=== PATIENT | female | born 1980 | race Asian ===

== ENCOUNTER 2016-11-14 00:30 | Emergency (ER) | payer OTHER ==
[~2016-11-14] VITALS: Ht 160 cm; Wt 65.3 kg
[~2016-11-14 00:30] MED LIST: ADVIL200 M2 PO; BENTYL20 MG PO; HYDROXYZINE10 MG PO; IMODIUM A-D2 M1 PO; MAALOX ADVANCE355 M1 PO; NEXIUM 40MG40 MG PO; NORCO 325 MG-51 TAB PO; NYQUIL D COLD295 ML PO; PEPCID 20MG TAB20 MG PO
--- NOTE | 2016-11-14 00:53 | ED GI/GU/ABDOMINAL COMPLAINT ---
History of Present Illness General Chief Complaint: Nausea, Vomiting, Diarrhea Stated Complaint: N/V/D Source: patient Exam Limitations: no limitations Vital Signs & Intake/Output Vital Signs & Intake/Output Vital Signs Date Time Temp Pulse Resp B/P Pulse O2 O2 Flow FiO2 Ox Delivery Rate 11/14 0055 96.9 85 18 130/95 98 Room Air Allergies Coded Allergies: shellfish derived (RASH 02/10/16) Reconcile Medications Diphenoxylate HCl/Atropine (Lomotil 2.5-0.025 MG Tablet) 2.5 MG-0.025 MG TABLET 1 TAB PO 4 TIMES/DAY PRN DIARRHEA TWENTY...[id number] Dm/P-Ephed/Acetaminoph/Doxylam (Nyquil D Cold & Flu Liquid) 295 ML LIQUID 30 ML PO Q4H PRN BODY ACHES/FEELS COLD (Reported) Ibuprofen (Advil) 200 MG TABLET 2 TAB PO PRN PAIN (Reported) Omeprazole Magnesium (Prilosec Otc) 20 MG TABLET.DR 1 TAB PO DAILY STOMACH PAIN/BURNING Ondansetron (Zofran Odt) 4 MG TAB.RAPDIS 1 TAB SL TID PRN NAUSEA Triage Nurses Notes Reviewed? yes ? n Is pt currently ? No Quality/Severity: cramping Location: generalized abdomen Radiation: no radiation Activities at Onset: none Prior Abdominal Problems: none No Modifying Factors: none Modifying Factors: Improves With: rest. Associated Symptoms: nausea/vomiting HPI: 35-year-old woman with nausea vomiting diarrhea all day today. She states when she woke up she felt nauseous. She has vomited 2-3 times throughout the day. She notes 2-3 episodes of loose green stool. She has no abdominal pain but, "feels bloated." She has no fever chills chest pain shortness of breath. She is otherwise well and has no other concerns. Past History Travel History Traveled to [place] past 21 day No Medical History Any Pertinent Medical History? see below for history Gastrointestinal: TRANSAMINITIS Other Medical Hx: Alcoholism History of MRSA: No History of VRE: No History of CDIFF: No Tetanus Vaccine: 01/12/14 Surgical History Surgical History: cholecystectomy, laparotomy, tubal Psychosocial History Who do you live with Family Services at Home None What is your primary language Japanese Family History Hx Contributory? No Review of Systems Review of Systems Constitutional: Reports: no symptoms. EENTM: Reports: no symptoms. Respiratory: Reports: no symptoms. Cardiovascular: Reports: no symptoms. GI: Reports: no symptoms. Genitourinary: Reports: no symptoms. Musculoskeletal: Reports: no symptoms. Skin: Reports: no symptoms. Neurological/Psychological: Reports: no symptoms. Hematologic/Endocrine: Reports: no symptoms. Immunologic/Allergic: Reports: no symptoms. All Other Systems: Reviewed and Negative Physical Exam Physical Exam General Appearance: well developed/nourished, mild distress Head: atraumatic, normal appearance Eyes: Bilateral: normal appearance. Ears, Nose, Throat, Mouth: hearing grossly normal Neck: normal inspection, supple, full range of motion, normal alignment Respiratory: normal breath sounds, chest non-tender, no respiratory distress, quiet respiration, lungs clear Cardiovascular: regular rate/rhythm Gastrointestinal: normal bowel sounds, soft, non-tender, no organomegaly Back: normal inspection, normal range of motion Extremities: normal range of motion Neurologic/Psych: no motor/sensory deficits, awake, alert, oriented x 3 Skin: intact, normal color, warm/dry Core Measures ACS in differential dx? No Severe Sepsis Present: No Septic Shock Present: No Progress Differential Diagnosis: viral gastroenteritis versus food poisoning versus other. He has no right lower quadrant tenderness. I doubt appendicitis or surgical process. Plan of Care: Orders Procedure Date/time Status LIPASE 11/14 38 Complete HEPATIC FUNCTION PANEL 11/14 38 Complete HUMAN BETA HCG SCREEN 11/14 38 Complete CBC WITHOUT DIFFERENTIAL 11/14 38 Complete BASIC METABOLIC PANEL 11/14 38 Complete AMYLASE 11/14 38 Complete Laboratory Tests 11/14/16 0112: Anion Gap 16, Estimated GFR > 60, BUN/Creatinine Ratio 8.6, Glucose 98, Calcium 10.1, Total Bilirubin 0.5, Direct Bilirubin 0.4, AST 60 H, ALT 52, Alkaline Phosphatase 61, Total Protein 8.2, Albumin 4.9, Amylase 48, Lipase 234, Total Beta HCG NEGATIVE, CBC w Diff NO MAN DIFF REQ, RBC 5.12, MCV 76.9 L, MCH 26.0 L, RDW 14.7 H, MPV 7.2 L, Gran % 45.4, Lymphocytes % 43.1, Monocytes % 8.8, Eosinophils % 1.9, Basophils % 0.8, Absolute Granulocytes 4.1, Absolute Lymphocytes 3.9 H, Absolute Monocytes 0.8 H, Absolute Eosinophils 0.2, Absolute Basophils 0.1, PUBS MCHC 33.8 Initial ED EKG: none Departure Departure Disposition: HOME OR SELF CARE Condition: Stable Clinical Impression Primary Impression: Gastroenteritis Secondary Impressions: Abdominal pain, Nausea and vomiting Referrals: MUNDO SIERRA (PCP/Family) Departure Forms: Customer Survey General Discharge Information Prescriptions: Current Visit Scripts Ondansetron (Zofran Odt) 1 TAB SL TID PRN NAUSEA #10 TAB Diphenoxylate HCl/Atropine (Lomotil 2.5-0.025 MG Tablet) 1 TAB PO 4 TIMES/DAY PRN DIARRHEA #20 TAB TWENTY...[id number] Omeprazole Magnesium (Prilosec Otc) 1 TAB PO DAILY #30 TAB Comments 3, 2:06am... well appearing after iv fluids and supportive measures.... home with supportive medications... pt safe for discharge....
[2016-11-14 01:20] LABS: ABSOLUTE BASOPHIL COUNT 0.1 /CUMM (0.0-0.2); ABSOLUTE EOSINOPHIL COUNT 0.2 /CUMM (0.0-0.7); ABSOLUTE GRANULOCYTE CT 4.1 /CUMM (1.4-6.5); ABSOLUTE LYMPH COUNT 3.9 /CUMM (1.2-3.4); ABSOLUTE MONOCYTE COUNT 0.8 /CUMM (0.10-0.60); BASOPHIL % 0.8 % (0.0-2.0); EOSINOPHIL % 1.9 % (0-5); GRANULOCYTE % 45.4 % (42.2-75.2); HEMATOCRIT 39.4 % (37-47); MEAN CORPUSCULAR HGB CONC 33.8 G/DL (33.0-37.0); MEAN CORPUSCULAR VOLUME 76.9 FL (81.0-99.0); MEAN PLATELET VOLUME 7.2 FL (7.4-10.4); PLATELET COUNT 362 /CUMM (130-400); RBC DISTRIBUTION WIDTH 14.7 % (11.5-14.5); RED BLOOD CELL CT 5.12 /CUMM (4.20-5.40)
[2016-11-14] MEDS ORDERED: PRILOSEC OTC20 M1 PO (02:05)
[2016-11-14] MEDS ORDERED: ZOFRAN ODT4 M1 SL (02:05)
[2016-11-14] MEDS ORDERED: LOMOTIL 2.5-0.1 EACH PO (02:05)
[2016-11-14 02:19] VITALS: BP 134/92
== END 2016-11-14 02:26 ==
LOC: ERH 00:30
PROVIDERS: Pediatrics
DX: K52.9 Noninfective gastroenteritis and colitis, unspecified (principal)
CPT/HCPCS: 96374; 96375; J2405

== ENCOUNTER 2016-12-09 09:23 | Emergency (ER) | payer OTHER ==
[~2016-12-09] VITALS: Ht 160 cm; Wt 68.0 kg
[~2016-12-09 09:23] MED LIST changes: +LOMOTIL 2.5-0.1 EACH PO; +PRILOSEC OTC20 M1 PO; +ZOFRAN ODT4 M1 SL
--- NOTE | 2016-12-09 09:41 | ED GENERAL ADULT ---
History of Present Illness General Chief Complaint: Abdominal Pain/Flank Pain Stated Complaint: ABD PAIN, N/V Source: patient Exam Limitations: no limitations Vital Signs & Intake/Output Vital Signs & Intake/Output Vital Signs Date Time Temp Pulse Resp B/P Pulse O2 O2 Flow FiO2 Ox Delivery Rate 12/09 1135 98.2 89 20 122/83 96 Room Air 12/09 0931 98.0 97 20 124/88 96 Room Air Allergies Coded Allergies: shellfish derived (RASH 12/09/16) Reconcile Medications Meloxicam (Mobic) 15 MG TABLET 1 TAB PO DAILY PRN PAIN Vit No.130/Iron/FA ( Tablet) 27 MG IRON-800 MCG TABLET 1 TAB PO DAILY (Reported) Triage Note: TRIAGE: PT TO ER C/C UPPER ABD PAIN, WOKE WITH SAME. CONSTANT SINCE ONSET. SHARP IN NATURE. +N/+V/-D. VOMITED X 2 SINCE ONSET. -URINARY S/S. LMP 11/23/2016, UNSURE OF STATUS. Triage Nurses Notes Reviewed? yes Onset: Abrupt Duration: hour(s): Timing: recent history : No Patient currently breastfeeds: No HPI: 12/09/16 10 AM 35-year-old female presents to the emergency department complaining of intermittent stabbing epigastric abdominal pain. Today 2 episodes of vomiting this morning. Unable to hold down fluids. States that her abdomen is distended. Last bowel movement was yesterday and it was normal. No bloody stool or blood in the vomitus LMP 11/23/2016 No fevers chills dysuria Past medical history is negative No known drug allergies. Status post 3 years ago Also status post cholecystectomy The onset of the symptoms were abrupt, the duration has been the past 24 hours, the severity is significant as her symptoms required her to come to the emergency department for care. Past History Travel History Traveled to [place] past 21 day No Medical History Any Pertinent Medical History? 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 No Review of Systems Review of Systems Constitutional: Denies: fever. EENTM: Reports: no symptoms. Respiratory: Denies: short of breath. Cardiovascular: Denies: chest pain. GI: Reports: abdominal pain. Genitourinary: Reports: no symptoms. Musculoskeletal: Reports: no symptoms. Skin: Denies: rash. Neurological/Psychological: Reports: no symptoms. Hematologic/Endocrine: Reports: no symptoms. Physical Exam Physical Exam General Appearance: well developed/nourished, alert, awake, anxious, mild distress Head: atraumatic, normal appearance Eyes: Bilateral: normal appearance, PERRL, EOMI. Ears, Nose, Throat: normal pharynx, normal ENT inspection Neck: normal inspection, supple Respiratory: normal breath sounds, chest non-tender, no respiratory distress Cardiovascular: regular rate/rhythm Peripheral Pulses: 4+ radial (R), 4+ radial (L) Gastrointestinal: soft, non-tender, mild distention Back: normal inspection, normal range of motion Extremities: normal inspection Neurologic/Psych: no motor/sensory deficits, awake, alert, oriented x 3 Skin: intact, normal color, warm/dry Core Measures ACS in differential dx? No CVA/TIA Diagnosis: No Severe Sepsis Present: No Septic Shock Present: No Progress Differential Diagnoses I considered the following diagnoses in my evaluation of the patient: [Bowel obstruction, incarcerated hernia, viral syndrome, pancreatitis, gastritis, ureterolithiasis Plan of Care: Orders Procedure Date/time Status LIPASE 12/09 1004 Complete COMPREHENSIVE METABOLIC PANEL 12/09 1004 Complete CBC WITHOUT DIFFERENTIAL 12/09 1004 Complete AMYLASE 12/09 1004 Complete URINE 12/09 0940 Complete URINALYSIS 12/09 0940 Complete Laboratory Tests 12/09/16 1014: Anion Gap 15, Estimated GFR > 60, BUN/Creatinine Ratio 17.1, Glucose 87, Calcium 10.3 H, Total Bilirubin 0.6, AST 25, ALT 37, Alkaline Phosphatase 56, Total Protein 8.5 H, Albumin 4.9, Globulin 3.6, Albumin/Globulin Ratio 1.4, Amylase 41, Lipase 150, CBC w Diff NO MAN DIFF REQ, RBC 5.51 H, MCV 76.4 L, MCH 26.0 L, RDW 14.2, MPV 7.4, Gran % 63.2, Lymphocytes % 29.8, Monocytes % 5.8, Eosinophils % 0.8, Basophils % 0.4, Absolute Granulocytes 6.6 H, Absolute Lymphocytes 3.1, Absolute Monocytes 0.6, Absolute Eosinophils 0.1, Absolute Basophils 0, PUBS MCHC 34.1 12/09/16 0941: Urinalysis MANY H, Urine Color YEL, Urine Clarity HAZY H, Urine pH 6.5, Ur Specific Hye 1.020, Urine Protein NEG, Urine Ketones TRACE H, Urine Nitrite NEG, Urine Bilirubin NEG, Urine Urobilinogen 0.2, Ur Leukocyte Esterase SMALL H , Ur Microscopic SEDIMENT EXAMINED, Urine RBC 1-3, Urine WBC RARE, Ur Epithelial Cells MANY H, Urine Bacteria FEW H, Urine Hemoglobin NEG, Urine Glucose NEG, Urine Test NEGATIVE Initial ED EKG: none Departure Departure Disposition: HOME OR SELF CARE Condition: Stable Clinical Impression Primary Impression: Abdominal pain Secondary Impressions: Ovarian cyst Referrals: MUNDO SIERRA Departure Forms: Customer Survey General Discharge Information Prescriptions: Current Visit Scripts Meloxicam (Mobic) 1 TAB PO DAILY PRN PAIN #20 TAB Comments Labs unremarkable CT symptoms straight small ovarian cyst, minimal free fluid. PATIENT: CHERIE BURCIAGA PRESENT AGE: 35 PATIENT ACCOUNT NO: [id number] : 79 LOCATION: [facility] ORDERING PHYSICIAN: DIONTE CODY DO SERVICE DATE: 12/09/16 EXAM TYPE: CAT - CT ABD & PELVIS W/O IV CONTRAS EXAMINATION: CT ABDOMEN AND PELVIS WITHOUT CONTRAST CLINICAL INFORMATION: Abdominal pain and distention, evaluate for obstruction. COMPARISON: 08/29/2014 TECHNIQUE: Multidetector volumetric imaging was performed from the superior aspect of the liver through the pubic symphysis. Sagittal and coronal reformatted images were obtained on the technologist's workstation. DLP: 291 mGy-cm FINDINGS: Lung bases appear unremarkable. The liver, spleen, pancreas, kidneys and adrenal glands appear unremarkable. The gallbladder has been previously removed. The biliary tree is nondilated. Bowel gas pattern on the multiple launch rocket system crewmember view appears unremarkable. There are some air/fluid-filled loops of small bowel centrally within the abdomen which do not appear significantly dilated. No soft tissue mass is identified. Terminal ileum appears unremarkable. There is a small amount of free fluid in the pelvis and a small probable left adnexal cyst. Right adnexa appears unremarkable. Uterus unremarkable. No aggressive appearing osseous lesions are seen. There is no evidence of lymphadenopathy. Abdominal aorta appears unremarkable. What appears to represent the appendix coronal image 41 appears unremarkable. IMPRESSION: Post cholecystectomy changes, small cyst left ovary with a small amount of free fluid in the pelvis. There is no evidence of an obstruction. Bowel gas pattern is nonspecific. DICTATED BY: JOVI SHELDON MD DATE/TIME DICTATED:12/09/161037 THEATRICAL VARIETY AGENT:LAYLA DATE/TIME TRANSCRIBED:12/09/161037 CONFIDENTIAL, DO NOT COPY WITHOUT APPROPRIATE AUTHORIZATION. <Electronically signed in Other Vendor System> SIGNED BY: JOVI SHELDON MD [id number] Critical Care Note Critical Care Note Critical Care Time: non-applicable
[2016-12-09] MEDS ORDERED: PRENATAL TABLE1 EAC2 PO (10:06)
[2016-12-09 10:25] LABS: ABSOLUTE BASOPHIL COUNT 0 /CUMM (0.0-0.2); ABSOLUTE EOSINOPHIL COUNT 0.1 /CUMM (0.0-0.7); ABSOLUTE GRANULOCYTE CT 6.6 /CUMM (1.4-6.5); ABSOLUTE LYMPH COUNT 3.1 /CUMM (1.2-3.4); ABSOLUTE MONOCYTE COUNT 0.6 /CUMM (0.10-0.60); BASOPHIL % 0.4 % (0.0-2.0); EOSINOPHIL % 0.8 % (0-5); GRANULOCYTE % 63.2 % (42.2-75.2); HEMATOCRIT 42.1 % (37-47); MEAN CORPUSCULAR HGB CONC 34.1 G/DL (33.0-37.0); MEAN CORPUSCULAR VOLUME 76.4 FL (81.0-99.0); MEAN PLATELET VOLUME 7.4 FL (7.4-10.4); PLATELET COUNT 347 /CUMM (130-400); RBC DISTRIBUTION WIDTH 14.2 % (11.5-14.5); RED BLOOD CELL CT 5.51 /CUMM (4.20-5.40); WHITE BLOOD CELL COUNT 10.4 /CUMM (4.8-10.8)
--- NOTE | 2016-12-09 10:52 | CT SCAN REPORT ---
EXAMINATION: CT ABDOMEN AND PELVIS WITHOUT CONTRAST CLINICAL INFORMATION: Abdominal pain and distention, evaluate for obstruction. COMPARISON: 08/29/2014 TECHNIQUE: Multidetector volumetric imaging was performed from the superior aspect of the liver through the pubic symphysis. Sagittal and coronal reformatted images were obtained on the technologist's workstation. DLP: 291 mGy-cm FINDINGS: Lung bases appear unremarkable. The liver, spleen, pancreas, kidneys and adrenal glands appear unremarkable. The gallbladder has been previously removed. The biliary tree is nondilated. Bowel gas pattern on the steam crane operator view appears unremarkable. There are some air/fluid-filled loops of small bowel centrally within the abdomen which do not appear significantly dilated. No soft tissue mass is identified. Terminal ileum appears unremarkable. There is a small amount of free fluid in the pelvis and a small probable left adnexal cyst. Right adnexa appears unremarkable. Uterus unremarkable. No aggressive appearing osseous lesions are seen. There is no evidence of lymphadenopathy. Abdominal aorta appears unremarkable. What appears to represent the appendix coronal image 41 appears unremarkable. IMPRESSION: Post cholecystectomy changes, small cyst left ovary with a small amount of free fluid in the pelvis. There is no evidence of an obstruction. Bowel gas pattern is nonspecific.
[2016-12-09 11:35] VITALS: BP 122/83
[2016-12-09] MEDS ORDERED: MOBIC15 M1 PO (11:55)
== END 2016-12-09 12:02 ==
LOC: ERH 09:23
PROVIDERS: Emergency Medicine
DX: N83.209 Unspecified ovarian cyst, unspecified side (principal)
CPT/HCPCS: 74176; 81001; 81025

== ENCOUNTER 2017-02-01 09:23 | Emergency (ER) | payer OTHER ==
[~2017-02-01] VITALS: Ht 165.1 cm; Wt 68.0 kg
[~2017-02-01 09:23] MED LIST changes: +MOBIC15 M1 PO; +PRENATAL TABLE1 EAC2 PO
[2017-02-01 09:26] VITALS: BP 140/96
--- NOTE | 2017-02-01 10:02 | ED ANIMAL BITE/WOUND CHECK ---
History of Present Illness General Chief Complaint: Animal/Insect Bite Stated Complaint: DOG BITE Source: patient Exam Limitations: no limitations Vital Signs & Intake/Output Vital Signs & Intake/Output Vital Signs Date Time Temp Pulse Resp B/P B/P Pulse O2 O2 Flow FiO2 Mean Ox Delivery Rate 02/01 0926 98.2 85 18 140/96 97 Room Air Room Air Allergies Coded Allergies: shellfish derived (RASH 12/09/16) Reconcile Medications Meloxicam (Mobic) 15 MG TABLET 1 TAB PO DAILY PRN PAIN Vit No.130/Iron/FA ( Tablet) 27 MG IRON-800 MCG TABLET 1 TAB PO DAILY (Reported) Triage Note: TRIAGE: 36 Y/O FEMALE PRESENTS C/O DOG BITE TO LEFT LOWER LEG, POSTERIOR. UNKNOWN VACCINATION STATUS OF DOG. 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 SMALL AFFECTED AREA NOTED. UNSURE IF SKIN PUNCTURED. SLIGHT BRUISING NOTED. UNKNOWN LAST TETANUS. Triage Nurses Notes Reviewed? yes : No Patient currently breastfeeds: No HPI: 36-year-old female [facility] of a dog bite. She reports she was outside in her yard when one of her neighbors dogs came over to her and bit her in her left ankle. She went right into her house and then came to the emergency department. She did not speak to her neighbor about rabies status. Mild pain at the site of the bite at this time. Past History Travel History Traveled to [place] past 21 day No Medical History Any Pertinent Medical History? 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 No Review of Systems Review of Systems Constitutional: Reports: no symptoms. EENTM: Reports: no symptoms. Respiratory: Reports: no symptoms. Cardiovascular: Reports: no symptoms. GI: Reports: no symptoms. Genitourinary: Reports: no symptoms. Musculoskeletal: Reports: see HPI. Skin: Reports: see HPI. Neurological/Psychological: Reports: no symptoms. Hematologic/Endocrine: Reports: no symptoms. Immunologic/Allergic: Reports: no symptoms. All Other Systems: Reviewed and Negative Physical Exam Physical Exam General Appearance: well developed/nourished, mild distress Head: atraumatic Eyes: Bilateral: PERRL, EOMI. Ears, Nose, Throat: normal pharynx, normal ENT inspection, hearing grossly normal Neck: normal inspection, supple Respiratory: normal breath sounds Cardiovascular: regular rate/rhythm Gastrointestinal: soft, non-tender Back: normal inspection Extremities: normal range of motion, ABRASION NOTED TO LLE WITH BRUSING Neurologic/Psych: awake, alert, oriented x 3, normal mood/affect Skin: intact, normal color, warm/dry Lymphatic: no anterior cervical demi Diagram Body: 1) Ecchymotic areA NOTED WITH ABRASED AREA- SKIN INTACT WITH NO PUNCTURE WOUNDS Progress Differential Diagnosis: CONTUSION, ABRASION DUE TO DOG BITE Plan of Care: Current Medications Sig/Tyrese Start time Last Medication Dose Stop Time Status Admin Tetanus/Diphtheria 0.5 ML ONCE ONE 02/01 1000 UNVr Toxoids Adsorbed 02/01 1001 (Decavac) Comments: Patient needs tetanus reports that it is not up-to-date. She does not know the status of rabies but since there is no actual puncture of the skin she does not need rabies vaccination at this time. She will follow up with [place] [employer] and animal control for rabies status just so she knows. Departure Departure Time of Disposition: 958 Disposition: HOME OR SELF CARE Condition: Stable Clinical Impression Primary Impression: Dog bite of ankle Qualifiers: Encounter type: initial encounter Laterality: left Qualified Codes: S91.052A - Open bite, left ankle, initial encounter; W54.0XXA - Bitten by dog, initial encounter Secondary Impressions: Contusion Qualifiers: Encounter type: initial encounter Contusion area: ankle Referrals: DIONNE CERON,FRITZ Additional Instructions: ibuprofen as needed for pain. use Neosporin 3-4 times a day for the next 3 days. Keep area clean and dry. Ice to area to help decrease swelling Departure Forms: Customer Survey General Discharge Information
== END 2017-02-01 10:00 ==
LOC: ERH 09:23
DX: S91.052A Open bite, left ankle, initial encounter (principal); S90.02XA Contusion of left ankle, initial encounter; W54.0XXA Bitten by dog, initial encounter; Y93.9 Activity, unspecified; Y92.017 Garden or yard in single-family (private) house as the place of occurrence of the external cause
CPT/HCPCS: 90471; 90714